=== PATIENT | male | born 1950 | race Caucasian/White ===

== ENCOUNTER 2018-03-19 07:40 | Observation (INO) | payer OTHER ==
--- NOTE | 2018-03-08 11:11 | GHP ---
DATE OF ADMISSION: 03/19/2018 He will be an a.m. admission for surgery at [facility] on March 19, 2018. PROBLEM: Right knee degenerative arthritis. HISTORY OF PRESENT ILLNESS: The patient is a 67-year-old man admitted for a right total knee arthrop lasty. He has had progressive symptoms for the last 3-5 years. He had viscosupplementation injectio ns about 3 years ago, but it did not help. He is having daily pain and stiffness. The knee is tight and sore after sitting. He is using ibuprofen on most days. The knee is sore with hiking and prolo nged walking. He has never had previous surgery on his right knee. He has advanced degenerative art hritis. He is admitted for a right total knee arthroplasty. PAST MEDICAL HISTORY: He is treated for elevated cholesterol. He has had a negative cardiac stress test. I did his left BHR in 2012. No history of heart disease, stents, DVT, hepatitis, MRSA staph i nfection, sleep apnea, or bleeding problems. CURRENT MEDICATIONS: Atorvastatin 20 mg per day. ALLERGIES: Drug allergies: None. Metal allergy: None. Latex allergy: None. SOCIAL HISTORY: The patient is . He does not smoke cigarettes and occasionally drinks alcoho l. He works as an engineering production worker/senior technical writer. FAMILY HISTORY: Positive for arthritis and diabetes. PHYSICAL EXAMINATION: Height 5 feet 10 inches. Weight 180 pounds. BMI 25.8. GENERAL: He is a fit -appearing man. HEENT: Eyes conjunctivae and sclerae are clear. Pupils are round and reactive. MO UTH: Good oral hygiene. No loose teeth. CHEST: Clear. HEART: Regular rhythm. No murmurs. EXTR EMITIES: Pertinent findings are limited to his right knee. He has varus alignment. He lacks 3 or 4 degrees of full extension and flexes to 110 degrees. Mild pseudolaxity of his medial collateral lig ament. Moderate patellofemoral crepitation with active knee extension. IMAGING: His films show advanced medial compartment degenerative arthritis in both knees. He is bon e-on-bone in the medial compartment. Varus alignment is present. IMPRESSION ON ADMISSION: 1. Bilateral knee severe medial compartment degenerative arthritis with varus deformity. His right knee is symptomatic. 2. Five years status post left bilateral hip replacements with an excellent result. 3. Treatment for elevated cholesterol. PLAN: He will undergo a right total knee arthroplasty. The surgery has been described to him, inclu ding the risks, complications, expectations, and recovery time. I have advised him that a small perc entage of people do not get a good result with a total knee replacement. I have stressed the importa nce of postoperative physical therapy. All his questions have been answered, and he consents to surg franko. Copy requested to: Bob Ge Dr. [address] [facility] [id number] [place] [address] /[id number]/MODL
[~2018-03-19 07:40] MED LIST: POVIDONE-IODINE 20 ML in SODIUM CL IRRIG SOLUTION 500 ML IRR ONE; ROPIVACAINE 0.2% 80 MG, EPINEPHrine 0.2 MG, KETOROLAC TROMETHAMINE 30 MG in SYRINGE 0 ML IU ONE; TRANEXAMIC ACID 1,000 MG in NS 100 ML IV ONE; TRANEXAMIC ACID 3,000 MG in NS (SYRINGE) 50 ML IRR ONE; TRANEXAMIC ACID 3,000 MG/50 ML BAG IRR ONE; VANCOMYCIN 1 GM VIAL ONE; ceFAZolin 1 GM/5 ML SYR ONE
[2018-03-19] MEDS ORDERED: LIDOCAINE 1% 2 ML INJ ID PRN (08:21)
[2018-03-19] MEDS ORDERED: DEXAMETHASONE 4 MG/ML VIAL IVP ONE (08:21)
[2018-03-19] MEDS ORDERED: FAMOTIDINE 20 MG TAB PO ONE (08:21)
[2018-03-19] MEDS ORDERED: GABAPENTIN 300 MG CAP PO ONE (08:21)
[2018-03-19] MEDS ORDERED: LR 1,000 ML IV ONE (08:21)
[2018-03-19] MEDS ORDERED: ONDANSETRON 4 MG/2 ML VIAL IVP ONE (08:21)
[2018-03-19] MEDS ORDERED: ceFAZolin 2 GM/DEXTROSE 100 ML IV ONE (08:21)
[2018-03-19] MEDS ORDERED: ACETAMINOPHEN 325 MG TAB PO ONE (08:21)
--- NOTE | 2018-03-19 09:05 | PDHPUP ---
History & Physical Update H&P update statement: This history and physical update is based on an assessment of the patient which was completed after admission or registration (within 24 hours), but prior to the surgery/procedure. H&P update: H&P reviewed & patient examined
[2018-03-19] MEDS ORDERED: MIDAZOLAM 2 MG/2 ML VIAL ONE (09:45)
[2018-03-19] MEDS ORDERED: BUPIVACAINE/DEXTROSE 7.5MG/ML 2 ML SPINAL AMP SP ONE (09:46)
[2018-03-19] MEDS ORDERED: PROPOFOL/EMULSION 500 MG/50 ML BOTTLE IV ONE ×2 (09:46)
[2018-03-19] MEDS ORDERED: ROPIVACAINE HCL 150 MG/30 ML INJ ONE (09:59)
[2018-03-19] MEDS ORDERED: NALOXONE HCL 0.4 MG/ML INJ IVP PRN (10:02)
[2018-03-19] MEDS ORDERED: ONDANSETRON 4 MG/2 ML VIAL IVP PRN ×2 (10:02→11:53)
[2018-03-19] MEDS ORDERED: MIDAZOLAM 2 MG/2 ML VIAL IVP ONE (10:02)
[2018-03-19] MEDS ORDERED: HYDROmorphONE/DILAUDID 2 MG/ML INJ IVP PRN (10:02)
[2018-03-19] MEDS ORDERED: oxyCODONE IR 5 MG TAB PO PRN ×2 (10:02→11:53)
[2018-03-19] MEDS ORDERED: fentaNYL 100 MCG/2 ML INJ IVP PRN (10:02)
--- NOTE | 2018-03-19 10:04 | PDANEPAE ---
ANE History of Present Illness R TKA ANE Past Medical History - Cardiovascular History Hx Hypertension: No Hx Arrhythmias: No Hx Chest Pain: No Hx Coronary Artery / Peripheral Vascular Disease: No Hx CHF / Valvular Disease: No Hx Palpitations: No - Pulmonary History Hx COPD: No Hx Asthma/Reactive Airway Disease: No Hx Recent Upper Respiratory Infection: No Hx Oxygen in Use at Home: No Hx Sleep Apnea: No Sleep Apnea Screening Result - Last Documented: Negative - Neurologic History Hx Cerebrovascular Accident: No Hx Seizures: No Hx Dementia: No - Endocrine History Hx Diabetes: No - Renal History Hx Renal Disorders: No - Liver History Hx Hepatic Disorders: No - Neurological & Psychiatric Hx Hx Neurological and Psychiatric Disorders: No - Cancer History Hx Cancer: No - Congenital Disorder History Hx Congenital Disorders: No - GI History Hx Gastrointestinal Disorders: No - Other Health History Other Health History: wears glasses - Chronic Pain History Chronic Pain: Yes (right knee) - Surgical History Prior Surgeries: hip replacement, left ANE Review of Systems Review of Systems: - Exercise capacity METS (RN): 5 METS ANE Patient History - Allergies Allergies/Adverse Reactions: No Known Allergies Allergy (Verified 03/19/18 08:49) - Home Medications Home Medications: Atorvastatin Calcium [Lipitor 20 mg (*)] 20 mg PO DAILY 03/11/18 [Last Taken ] - NPO status NPO Since - Liquids (Date): 03/18/18 NPO Since - Liquids (Time): 21:00 NPO Since - Solids (Date): 03/18/18 NPO Since - Solids (Time): 21:00 - Smoking Hx Smoking Status: Never smoked - Family Anes Hx Family Hx Anesthesia Complications: none ANE Labs/Vital Signs - Vital Signs Blood Pressure: 119/75 Heart Rate: 65 Respiratory Rate: 18 O2 Sat (%): 95 Height: 177.8 cm Weight: 81.647 kg ANE Physical Exam - Airway Neck exam: FROM Mallampati Score: Class 2 - Pulmonary Pulmonary: clear to auscultation - Cardiovascular Cardiovascular: regular rate and rhythym - ASA Status ASA Status: II ANE Anesthesia Plan Anesthesia Plan: spinal Regional Anesthesia: adductor canal FNB
[2018-03-19] MEDS ORDERED: DEXAMETHASONE 4 MG/ML VIAL ONE (10:53)
[2018-03-19] MEDS ORDERED: ONDANSETRON 4 MG/2 ML VIAL ONE (10:53)
--- NOTE | 2018-03-19 11:46 | POSTOPPROG ---
Post Op Note Date of Operation: 03/19/18 Surgeon: Cirilo Joaquin Timber Management Assistant: Chiquita Anesthesiologist: Dionne Anesthesia: IV Sedation, Spinal Post-op Diagnosis: Right knee severe degenerative arthritis with varus deformity. Procedure: Right total knee arthroplasty Inf/Abcess present in the surg proc area at time of surgery?: No EBL: 50-100 (Adductor canal block with indwelling catheter in PACU)
[2018-03-19] MEDS ORDERED: POLYETHYLENE GLYCOL 3350 17 GM PKT PO PRN (11:53)
[2018-03-19] MEDS ORDERED: ONDANSETRON DISINTEGRATING 4 MG TAB PO PRN (11:53)
[2018-03-19] MEDS ORDERED: diphenhydrAMINE 25 MG CAP PO PRN (11:53)
[2018-03-19] MEDS ORDERED: CYCLOBENZAPRINE 10 MG TAB PO PRN (11:53)
[2018-03-19] MEDS ORDERED: NS 500 ML IV PRN (11:53)
[2018-03-19] MEDS ORDERED: PROMETHAZINE HCL 25 MG SUPPR PR PRN (11:53)
[2018-03-19] MEDS ORDERED: MAGNESIUM HYDROXIDE 30 ML UDCUP PO PRN (11:53)
[2018-03-19] MEDS ORDERED: BISACODYL 10 MG SUPP PR PRN (11:53)
[2018-03-19] MEDS ORDERED: PROMETHAZINE HCL 25 MG/ML INJ IVP PRN (11:53)
[2018-03-19] MEDS ORDERED: TEMAZEPAM 15 MG CAP PO PRN (11:53)
[2018-03-19] MEDS ORDERED: METOCLOPRAMIDE 10 MG/2 ML VIAL IVP PRN (11:53)
[2018-03-19] MEDS ORDERED: LACTULOSE 20 GM/30 ML UDCUP PO PRN (11:53)
[2018-03-19] MEDS ORDERED: DIPHENOXYLATE/ATROPINE LOMOTIL 1 TAB PO PRN (11:53)
[2018-03-19] MEDS ORDERED: LR 1,000 ML IV SCH (12:00)
--- NOTE | 2018-03-19 12:39 | POSTANESTH ---
Post Anesthetic Evaluation Cardiovascular Status: Normal, Stable Respiratory Status: Normal, Stable Level of Consciousness/Mental Status: Can Participate in Eval, Alert and Oriented Pain Control: Adequate, Prn Tx Ordered Nausea/Vomiting Control: Adequate, Prn Tx Ordered Complications Possibly Related to Anesthesia: None Noted
[2018-03-19] MEDS: ACETAMINOPHEN 325 MG TAB PO SCH ×3 (13:08→23:32)
[2018-03-19] MEDS: KETOROLAC 15 MG/1 ML SDV IVP SCH ×3 (13:15→23:31)
--- NOTE | 2018-03-19 13:28 | GOP ---
DATE OF OPERATION: 03/19/2018 SURGEON: Cirilo Joaquin MD DENTAL SERVICE CHIEF: Mahin Reina and Devonte Tapia. ANESTHESIA: Combination of Marcaine, spinal, IV sedation, and adductor canal block. ANESTHESIOLOGIST: Ajit Truong DO. PREOPERATIVE DIAGNOSIS: Right knee severe degenerative arthritis with varus deformity. POSTOPERATIVE DIAGNOSIS: Right knee severe degenerative arthritis with varus deformity. PROCEDURE PERFORMED: Right total knee arthroplasty, cemented, Nguyen and Nephew Journey II, posterior stabilized. FINDINGS: DESCRIPTION OF PROCEDURE: The patient was given 2 g of IV Ancef preoperatively within 60 minutes of surgery. He also received IV tranexamic acid at a dose of 1000 mg. He was placed on the operating r oom table and given spinal anesthesia with Marcaine by Dr. Truong. He was then placed supine and give n IV sedation. A Rubio catheter was not used. He wore a stocking and SCD on the nonoperative leg. A bolster was placed under the right hip to prevent excessive external rotation of the leg. His righ t lower extremity was prepped with ChloraPrep from the upper thigh tourniquet to the tips of the toes . It was draped free using sterile sheets, stockinette, and Ioban plastic adhesive drape. The lower leg was wrapped with compressive Coban. The leg was exsanguinated with elevation and a 6-inch compr essive wrap, and the pneumatic tourniquet was inflated to 250 mmHg. The World Health Organization time-out was performed to verify the correct patient identity and the c orrect surgical side and site. The [place] time-out was also performed. The Dinsmore Steeleayo leg holding device was sterilely attached to the operating room table and used throughout the procedure to help position the knee. A straight midline incision was made centered on the patell a. Subcutaneous tissues were sharply divided, and hemostasis was obtained using electrocautery. A m edial subcutaneous flap was developed, and the capsule and synovium were opened in a medial parapatel lar fashion. Very extensive degenerative changes were present in the knee, particularly in the sexton lofemoral joint and in the medial compartment. He had a significant erosion on his medial tibial ginette teau. The medial capsule and periosteum were elevated off the rim of the medial tibial plateau all t he way around to the posteromedial corner. Because of his preoperative varus deformity I performed a n aggressive release of his medial collateral ligament off the tibia. In order to improve exposure, the patella was prepared first. The original thickness of the patella was measured. Large peripheral osteophytes were removed. I cut a flat surface on the back of the trae cortes. He was sized for a 38 mm round resurfacing component. I removed enough bone from the patella such that the remaining bone plus the thickness of the patellar component recreated the original thi ckness of the patella. The composite thickness was 24 mm. The intramedullary alignment guide system was used to set up the distal femoral cut. The distal femu r was set up in 5 degrees of valgus. He had at least a 10-12 degree flexion contracture preoperative ly. I made a +2 mm cut on the distal femur. The sizing jig was used to determine proper femoral siz ing. He was a true size 7 without a shift. The 5 in 1 cutting block was applied, and the anterior a nd posterior condylar cuts and chamfer cuts were made. The final jig was used to remove the central portion of the distal femur to accommodate the posterior stabilized femoral component. I was careful to determine proper rotation by referencing off Whitesides line and other bony landmarks. Each cut was checked for accuracy. The femur was sized for a size 7 posterior stabilized component. Next, the tibia was prepared. The proximal tibial cut was made using the extramedullary alignment gu kenisha system. The cut was made in a few degrees of posterior slope. I was careful to achieve proper v arus valgus alignment and proper rotation. The posterior compartment was cleared of meniscal remnant s. Osteophytes were removed from the back of the femoral condyles. I stripped some of the capsule o ff the back of the femur. I checked the flexion extension gaps. He was still tight medially. I rel eased a little more of his medial collateral ligament distally but I still thought he was too tight m edially. Using an 11 blade I pie crusted his medial collateral ligament and this gave me the proper medial tension with equal and rectangular flexion and extension gaps. The tibia was sized for a size 6 component. With the trial components in place, I selected an 11 mm polyethylene posterior stabili zed tibial insert. The knee came to full extension and flexed to 125 degrees. His collateral ligame nts were stable and balanced in 90 degrees of flexion and full extension. The trial patellar button was applied, and patellar tracking was checked. Tracking was excellent without any digital pressure. 40 mL of the joint anesthetic cocktail were injected into the posterior capsule, the quadriceps muscl e and tendon areas, and the subcutaneous tissues along the skin edges. The surfaces were prepared for cementing. They were carefully cleaned with the pulsating lavage irri gation and thoroughly dried. The CarboJet device was used to blow dry the cancellous surfaces. A do uble batch of methylmethacrylate cement with 2 g of powdered vancomycin added was mixed. While it wa s still in a doughy state all [address] components were cemented in place. Excess cement was removed before it hardened. The 11 mm trial tibial insert was re-tried and was the proper thickness. The actual component was in serted and locked into place. The knee was thoroughly irrigated one final time with a dilute Betadine solution. The tourniquet was deflated and the total tourniquet time was 62 minutes. A 50 cc of tranexamic acid solution was irri gated into the joint. The joint was packed with a lap sponge and wrapped with a 6-inch Ovidio bandage a nd left this way for a couple of minutes. The vastus medialis portion of the extensor mechanism was repaired with several interrupted figure-of -eight #2 FiberWire sutures. The capsule and synovium were closed first with multiple interrupted fi [id number] 0 PDS sutures, followed by a running. barbed Ethicon Stratafix PDO suture. Subcutaneou s tissues were closed with a running 0 barbed Ethicon Stratafix Monoderm suture. The skin was closed with a running 3-0 barbed Ethicon Stratafix Monoderm subcuticular suture. The skin was sealed with half-inch Steri-Strips. The wound was covered with a large Mepilex waterproof dressing and a 6-inch compressive wrap. A long-leg KELLY stocking and SCD were applied, followed by the cooling device. The sacral Mepilex dressing was applied. I used a size 7 cemented Nguyen and Nephew Oxinium posterior stabilized femoral component, size 6 ceme nted tibial base plate, an 11 mm posterior stabilized tibial insert and a 38 mm cemented round all-po lyethylene resurfacing patellar component. The estimated blood loss following inflation of the tourniquet was about 100 cc. The sponge and needle count were correct on 2 occasions. He was awakened from anesthesia, transferred to [facility] and taken to PACU in satisfactory condition. There were no recognized intraoperative complications. In the PACU for additional posto perative pain control, Dr. Truong performed an adductor canal block with an indwelling catheter. Mahin Reina and Devonte Tapia acted as surgical assistants. Their assistance was a medical necess ity for safe completion of the procedure. Copy requested to: Bob Ge MD [place], [place] /[id number]/[facility] [place]
[2018-03-19] MEDS: ceFAZolin 2 GM/DEXTROSE 100 ML IV SCH (18:16)
[2018-03-19] MEDS: SENNOSIDES/DOCUSATE SODIUM TAB PO SCH (20:16)
[2018-03-19] MEDS: ASPIRIN 325 MG TAB PO SCH (20:16)
[2018-03-19] MEDS: FAMOTIDINE 20 MG TAB PO SCH (20:17)
[2018-03-20] MEDS: ceFAZolin 2 GM/DEXTROSE 100 ML IV SCH (03:01)
[2018-03-20] MEDS: ACETAMINOPHEN 325 MG TAB PO SCH ×2 (05:45→11:03)
[2018-03-20] MEDS: KETOROLAC 15 MG/1 ML SDV IVP SCH (05:47)
[2018-03-20] MEDS ORDERED: ROPIVACAINE HCL 150 MG/30 ML INJ ONE (07:22)
[2018-03-20] MEDS: ASPIRIN 325 MG TAB PO SCH (08:36)
[2018-03-20] MEDS: FAMOTIDINE 20 MG TAB PO SCH (08:36)
[2018-03-20] MEDS: SENNOSIDES/DOCUSATE SODIUM TAB PO SCH (08:36)
--- NOTE | 2018-03-20 08:41 | POSTOPPROG ---
Post Op Note Date of Operation: 03/20/18 Surgeon: Cirilo Joaquin Hydrodynamicist: Chiquita Anesthesiologist: Coleman Nixon Anesthesia: IV Sedation, Spinal Post-op Diagnosis: Right hip severe degenerative arthritis Procedure: Right total hip arthroplasty Inf/Abcess present in the surg proc area at time of surgery?: No EBL: 100500
[2018-03-20 08:45] VITALS: BP 131/78
[2018-03-20] MEDS ORDERED: FERROUS SULFATE 325 MG TAB PO SCH (09:00)
[2018-03-20] MEDS ORDERED: ATORVASTATIN CALCIUM 20 MG TAB PO SCH (09:00)
[2018-03-20] MEDS ORDERED: FERROUS SULFATE 140 MG TAB.ER PO SCH (09:00)
--- NOTE | 2018-03-20 09:24 | SOAPPROG ---
SOAP Progress Note Assessment/Plan: Assessment: Afebrile. Awake and alert. Moderate pain so far. Up and walking. Dsg is dry. Films look good. Plan: Up with PT. Long alignment film. DC later today. 03/20/18 09:23 Objective: Vital Signs Temp Pulse Resp BP Pulse Ox 36.5 C 65 14 131/78 H 94 03/20/18 07:48 03/20/18 08:25 03/20/18 08:25 03/20/18 08:25 03/20/18 08:15 Laboratory Results 03/20/18 04:38 03/19/18 03/20/18 03/21/18 05:59 05:59 05:59 Intake Total 2275 Output Total 400 Balance 1875 ICD10 Worksheet Patient Problems: Problems Problem Status Onset Osteoarthritis of right knee Acute Primary osteoarthritis of left hip Acute
--- NOTE | 2018-03-20 10:06 | ASMTLACE ---
LACE Length of stay for Answers: 2 days current admission Acuity / Level of Answers: No Care: Did the patient have an inpatient admission? Comorbidities - select Answers: Opioid dependence all that apply / Chronic pain # of Emergency department Answers: 0 visits in the last 6 months Score: 6 Date Signed: 03/20/2018 10:05 AM Electronically Signed By:RONNA Reid
[2018-03-20] MEDS ORDERED: LIPID EMULSION 20% 100 ML IV PRN (10:07)
--- NOTE | 2018-03-20 10:07 | ASMTCMCOM ---
CM Note CM Note Notes: PT rec home/outpatient. MD rec outpatient. Pt medically stable for d/c, no CM d/c needs identified. Date Signed: 03/20/2018 10:06 AM Electronically Signed By:RONNA Reid
--- NOTE | 2018-03-20 10:11 | PDPAINCON ---
Pain Management Consultation Patient referred by : Emani - Subjective Pain at rest (/10): 1 Pain with activity (/10): 2 Pain is: low, well controlled Activity: out of bed with assistance - Objective Technique: continuous peripheral nerve block Site: femoral Continuous infusion: ropivicaine Catheter site: clean, dry, intact, no erythema/edema/exudate Sensory and motor exam: consistent with block Vital signs: stable - Assessment/Plan Assessment/Plan: pain well-controlled, continue current mgmt (Pt doing well. Reports that block wore off around 4 am, however still has minimal pain. AC catheter bolused 30 cc 0.5% Ropivicaine and then removed. )
[2018-03-20] MEDS ORDERED: PNEUMOC 13-VAL CONJ-DIP CRM/PF 0.5 ML SYR (PREVNAR 13) IM ONE (11:26)
--- NOTE | 2018-03-20 13:07 | GDS ---
ADMISSION DIAGNOSIS: Right knee severe degenerative arthritis. DISCHARGE DIAGNOSIS: Right knee severe degenerative arthritis. OPERATION PERFORMED: 03/19/2018: A right total knee arthroplasty. POSTOPERATIVE COMPLICATIONS: None. CONDITION ON DISCHARGE: Improved. DESCRIPTION OF HOSPITAL COURSE: The patient was admitted to the hospital on the morning of surgery. His admission CBC was normal. The same day, under a combination of Marcaine, spinal, IV sedation, a nd adductor canal block, he underwent a right total knee arthroplasty. Postoperatively, he was treat ed with multimodal DVT prophylaxis, including aspirin. He was seen by Physical Therapy and made good progress with ambulation, stairs, and knee range of motion. By the time of discharge, he was afebri le, his wound was dry, and he was independent walking with a walker. DISPOSITION: The patient discharged to his home. He will go to outpatient physical therapy in [place] . He may progress to full weightbearing on the right as tolerated. Use KELLY stockings for 1 week. C ontinue aspirin 325 mg p.o. daily for 21 days. He has prescriptions for oxycodone, tramadol, and Cristy ebrex for pain control. I will see him back in the office on April 04, 2018. If there are any pr oblems, he is to call me at the office. Copy requested to: Dr. Bob [place], [place] /[id number]/LILY
== END 2018-03-20 12:07 | disposition home or self-care (01) ==
LOC: F3N 07:40
PROVIDERS: ADMIT Orthopaedic Surgery; ATTEND Orthopaedic Surgery
PROC: 0SRC069 Replacement of Right Knee Joint with Oxidized Zirconium on Polyethylene Synthetic Substitute, Cemented, Open Approach (ICD-10-PCS; principal; 2018-03-19 09:00)
DX: M17.0 Bilateral primary osteoarthritis of knee (principal); Z23 Encounter for immunization; Z96.643 Presence of artificial hip joint, bilateral
CPT/HCPCS: 27447; 73560; 77073; 90471; 97110; 97116; 97161; 97165; G0378; C1713; G0008; G0009; J0171; J0690; J1100; J1885; J2250; J2405; J2704; J2795; J3370